=== PATIENT | female | born 1990 | race African-American/Black ===

== ENCOUNTER 2016-07-08 11:20 | Emergency (ER) | payer SELFPAY ==
[~2016-07-08] VITALS: Ht 175.3 cm; Wt 55.4 kg
[~2016-07-08 11:20] MED LIST: OLAN5TAB2 PO
[2016-07-08 12:47] LABS: ANION GAP 11 mmol/L (8-16); CALCIUM, TOTAL 8.6 mg/dL (8.8-10.5); CARBON DIOXIDE 27 mmol/L (22-29); CHLORIDE 100 mmol/L (98-107); CREATININE 1.04 mg/dL (0.60-1.30); GLOMERULAR FILTR. RATE CALC > 60 mL/min (>60); POTASSIUM 3.5 mmol/L (3.5-5.1); SODIUM SERUM 138 mmol/L (136-145); UREA NITROGEN, BLOOD 12 mg/dL (7-18)
[2016-07-08 12:48] LABS: BASOPHILS % (AUTO) 1.9 % (0.0-2.0); EOSINOPHILS % (AUTO) 2.4 % (1.0-6.0); HEMATOCRIT 46.2 % (36-46); HEMOGLOBIN 15.2 g/dL (12.0-16.0); LYMPHOCYTES # (AUTO) 1.6 K/uL (1.0-4.8); LYMPHOCYTES % (AUTO) 43.4 % (22.0-44.0); MEAN CORPUSCULAR HEMOGLOBIN 28.3 pg (26.0-34.0); MEAN CORPUSCULAR HGB CONC 32.9 G/dL (31.0-37.0); MEAN CORPUSCULAR VOLUME 86 fL (80-100); MONOCYTES # (AUTO) 0.2 K/uL (0.1-1.0); MONOCYTES % (AUTO) 6.4 % (2.0-9.0); NEUTROPHILS # (AUTO) 1.7 K/uL (1.8-7.7); NEUTROPHILS % (AUTO) 45.9 % (40.0-70.0); RED BLOOD CELL COUNT(AUTO) 5.38 MIL/uL (4.00-5.20); RED CELL DISTRIBUTION WIDTH 12.6 % (11.5-14.5); WHITE BLOOD COUNT (AUTO) 3.8 K/uL (4.5-11.0)
[2016-07-08 12:53] LABS: ALANINE AMINOTRANSFERASE 18 U/L (12-78); ALBUMIN 4.4 g/dL (3.4-5.0); ASPARTATE AMINOTRANSFERASE 18 U/L (15-37); BILIRUBIN,TOTAL 1.3 mg/dL (0.1-1.0); TOTAL PROTEIN, SERUM 8.3 g/dL (6.4-8.2)
[2016-07-08 13:05] LABS: PLATELET COUNT (AUTO) 220 K/uL (150-450)
[2016-07-08] MEDS ORDERED: LORazepam 2 MG TABLET PO ONE (14:00)
[2016-07-08 14:20] VITALS: BP 122/79
== END 2016-07-08 14:33 | disposition home or self-care (01) ==
LOC: EMS 11:22
DX: F29 Unspecified psychosis not due to a substance or known physiological condition (principal); F41.9 Anxiety disorder, unspecified
CPT/HCPCS: 36415; 80053; 80307; 85025; 99284; G0480

== ENCOUNTER 2016-09-11 10:27 | Inpatient (IN) | payer MEDICAID ==
[~2016-09-11] VITALS: Ht 175.3 cm; Wt 56.8 kg
[2016-09-11 11:00] LABS: BASOPHILS % (AUTO) 0.1 % (0.0-2.0); EOSINOPHILS % (AUTO) 0 % (1.0-6.0); HEMATOCRIT 42.9 % (36-46); HEMOGLOBIN 13.8 g/dL (12.0-16.0); LYMPHOCYTES # (AUTO) 0.7 K/uL (1.0-4.8); LYMPHOCYTES % (AUTO) 10.1 % (22.0-44.0); MEAN CORPUSCULAR HEMOGLOBIN 27.5 pg (26.0-34.0); MEAN CORPUSCULAR HGB CONC 32.2 G/dL (31.0-37.0); MEAN CORPUSCULAR VOLUME 86 fL (80-100); MONOCYTES # (AUTO) 0.3 K/uL (0.1-1.0); MONOCYTES % (AUTO) 5.1 % (2.0-9.0); NEUTROPHILS # (AUTO) 5.6 K/uL (1.8-7.7); NEUTROPHILS % (AUTO) 84.7 % (40.0-70.0); PLATELET COUNT (AUTO) 247 K/uL (150-450); RED BLOOD CELL COUNT(AUTO) 5.01 MIL/uL (4.00-5.20); RED CELL DISTRIBUTION WIDTH 13.5 % (11.5-14.5); WHITE BLOOD COUNT (AUTO) 6.6 K/uL (4.5-11.0)
[2016-09-11 11:09] LABS: ANION GAP 12 mmol/L (8-16); CALCIUM, TOTAL 9.2 mg/dL (8.8-10.5); CARBON DIOXIDE 25 mmol/L (22-29); CHLORIDE 96 mmol/L (98-107); CREATININE 1.19 mg/dL (0.60-1.30); GLOMERULAR FILTR. RATE CALC > 60 mL/min (>60); POTASSIUM 3.6 mmol/L (3.5-5.1); SODIUM SERUM 133 mmol/L (136-145); UREA NITROGEN, BLOOD 11 mg/dL (7-18)
[2016-09-11 11:16] LABS: ALANINE AMINOTRANSFERASE 22 U/L (12-78); ALBUMIN 4.6 g/dL (3.4-5.0); ASPARTATE AMINOTRANSFERASE 18 U/L (15-37); BILIRUBIN,TOTAL 1.6 mg/dL (0.1-1.0); TOTAL PROTEIN, SERUM 8.3 g/dL (6.4-8.2)
[2016-09-11] MEDS: LORazepam 2 MG/ML VIAL IM ONE ×3 (11:30→17:34)
[2016-09-11] MEDS: DiphenhydrAMINE HCL 50 MG/ML VIAL IM ONE ×3 (11:30→17:34)
[2016-09-11] MEDS: HALOPERIDOL LACTATE 5 MG/ML VIAL IM ONE ×3 (11:30→17:34)
[2016-09-11 18:34] VITALS: BP 105/63
[2016-09-11] MEDS: OLANZapine 5 MG TABLET PO SCH (21:00)
[2016-09-12 06:43] VITALS: BP 130/82
[2016-09-12 08:30] VITALS: BP 126/76
[2016-09-12] MEDS: OLANZapine 5 MG TABLET PO SCH ×2 (09:00→20:03)
[2016-09-12] MEDS: LORazepam 2 MG TABLET PO PRN ×2 (13:44→22:49)
[2016-09-12] MEDS: HALOPERIDOL 5 MG TABLET PO PRN (13:44)
[2016-09-12 16:25] VITALS: BP 135/86
[2016-09-13 08:30] VITALS: BP 130/86
[2016-09-13] MEDS: OLANZapine 5 MG TABLET PO SCH ×2 (09:01→20:44)
[2016-09-13] MEDS: LORazepam 2 MG TABLET PO PRN ×2 (13:05→17:07)
[2016-09-13 16:00] VITALS: BP 124/88
[2016-09-13] MEDS: ZOLPIDEM TARTRATE 10 MG TABLET PO PRN (20:44)
[2016-09-14 00:02] VITALS: BP 129/82
[2016-09-14] MEDS: LORazepam 2 MG TABLET PO PRN ×3 (00:04→15:09)
[2016-09-14] MEDS: HALOPERIDOL 5 MG TABLET PO PRN (00:34)
[2016-09-14] MEDS: OLANZapine 5 MG TABLET PO SCH ×2 (08:35→20:23)
[2016-09-14 08:46] VITALS: BP 113/74
[2016-09-14 16:00] VITALS: BP 132/84
[2016-09-15] MEDS: LORazepam 2 MG TABLET PO PRN ×2 (00:51→09:48)
[2016-09-15 00:52] VITALS: BP 139/90
[2016-09-15] MEDS: ZOLPIDEM TARTRATE 10 MG TABLET PO PRN (02:06)
[2016-09-15 08:19] VITALS: BP 118/82
[2016-09-15] MEDS: OLANZapine 5 MG TABLET PO SCH (08:42)
[2016-09-15] MEDS: HALOPERIDOL 5 MG TABLET PO PRN (12:07)
== END 2016-09-15 13:35 | disposition home or self-care (01) | DRG 750 ==
LOC: EMS 10:30 → EEVIPCON 10:30 → B3A 16:47
PROVIDERS: ADMIT Psychiatry & Neurology Child & Adolescent Psychiatry
DX: F20.0 Paranoid schizophrenia (principal); E87.1 Hypo-osmolality and hyponatremia; D50.9 Iron deficiency anemia, unspecified; F12.90 Cannabis use, unspecified, uncomplicated
CPT/HCPCS: 96372; 99285; G0480; J1200; J1630; J2060